=== PATIENT | female | born 1960 | race Caucasian/White ===

== ENCOUNTER → 2023-04-07 10:37 | Outpatient (REF) | payer OTHER, SELFPAY | LOC: MRI 3T 10:37 | PROVIDERS: ATTENDING PHYSICIAN Physical Medicine & Rehabilitation; FAMILY PHYSICIAN Nurse Practitioner Family | DX: M54.16 Radiculopathy, lumbar region (principal) | CPT/HCPCS: 72148 ==

== ENCOUNTER → 2023-05-23 10:51 | Outpatient (REF) | payer OTHER, SELFPAY | LOC: WDC 10:51 | PROVIDERS: ATTENDING PHYSICIAN Obstetrics & Gynecology; FAMILY PHYSICIAN Nurse Practitioner Family | DX: Z12.31 Encounter for screening mammogram for malignant neoplasm of breast (principal) | CPT/HCPCS: 77063; 77067 ==

== ENCOUNTER → 2023-06-21 09:59 | Outpatient (REF) | payer OTHER, SELFPAY | LOC: RAD 09:59 | PROVIDERS: ATTENDING PHYSICIAN Nurse Practitioner Family | DX: M81.0 Age-related osteoporosis without current pathological fracture (principal) | CPT/HCPCS: 77080 ==

== ENCOUNTER → 2024-02-29 12:20 | Outpatient (REF) | payer OTHER, SELFPAY | LOC: HWRAD 12:20 | PROVIDERS: ATTENDING PHYSICIAN Nurse Practitioner Family | DX: M53.3 Sacrococcygeal disorders, not elsewhere classified (principal) | CPT/HCPCS: 72220 ==

== ENCOUNTER → 2024-05-26 11:04 | Outpatient (REF) | payer OTHER, SELFPAY | LOC: WDC 11:04 | PROVIDERS: ATTENDING PHYSICIAN Obstetrics & Gynecology; FAMILY PHYSICIAN Nurse Practitioner Family | DX: Z12.31 Encounter for screening mammogram for malignant neoplasm of breast (principal) | CPT/HCPCS: 77063; 77067 ==

== ENCOUNTER → 2024-11-25 10:24 | Outpatient (REF) | payer OTHER, SELFPAY | LOC: HWRAD 10:24 | PROVIDERS: ATTENDING PHYSICIAN Obstetrics & Gynecology; FAMILY PHYSICIAN Nurse Practitioner Family | DX: R14.0 Abdominal distension (gaseous) (principal); R10.84 Generalized abdominal pain | CPT/HCPCS: 76830; 76856 ==

== ENCOUNTER 2024-11-26 10:39 | Emergency (ER) | payer OTHER, SELFPAY ==
[2024-11-26 10:40] VITALS: BP 135/82
[2024-11-26 11:17] VITALS: BP 114/77; BMI 19.9
[2024-11-26] MEDS: NSS 1000 IV (11:29)
[2024-11-26] MEDS: ANTIVERT 25 MG PO (11:29)
[2024-11-26 11:31] LABS: Hematocrit 38.6 % (37.0-47.0); Hemoglobin 12.9 g/dL (12.0-16.0); Mean Corp Hgb Conc. 33.4 g/dL (33.0-37.0); Mean Corpuscular Volume 88.7 fL (81.0-99.0); Nucleated Red Blood Cells % 0 %; Platelet Count 203 10^3/uL (130-400); Red Cell Dist. Width 11.8 % (11.5-14.5)
--- NOTE | 2024-11-26 11:36 | ED.GENMED ---
History of Present Illness
General
Chief Complaint: Dizziness
Time Seen by Provider: 11/26/24 10:59
Nursing documentation reviewed up to this point in time: agreed with
History of Present Illness
History of Present Illness:
64-year-old female presents to the ER for evaluation of room spinning discomfort that started on awakening this morning. Patient has been experiencing this intermittently over the last several weeks. She had traveled to [place] and went on a cruise
and upon return had seen her ear nose and throat doctor due to intermittent ear pain and dizziness. She was diagnosed with perforated right tympanic membrane and was given drops along with follow-up appointment. Patient also has prior history of
TMJ and was supposed to start therapy for that today. She also takes medication for allergic rhinitis. She denies any fevers or chills. No headache though she did feel some sinus pressure this morning. No change in vision. No focal weakness to
her extremities. She has been eating and drinking without difficulty although she reported some nausea this morning. She did take 12.5 mg of meclizine prior to arrival with some improvement. Symptoms are provoked by turning her head to the right
and with standing.
Past History
Past History
ED Past Medical History: Other (Allergic rhinitis) and Other (History of UTI)
ED Past Surgical History: Tonsilectomy
Social History
Tobacco: Non-smoker
Alcohol: None
Personal:
Living: with family
Employment: Employed
Family History
Family History: Cancer
Review of Systems
Review of Systems
Allergies reviewed?: Yes
Phy Exam
Physical Exam
Physical Exam:
Patient is awake, alert, appears in no acute distress, head is NCAT, PERRL, EOMI mucous membranes moist, left tympanic membrane appears within normal limits, right tympanic membrane with mild retraction and sick crust present on the posterior aspect
of the TM, no erythema, no dullness, no nystagmus provoked on head movement, conjunctiva pink, no carotid bruits, no JVD, heart regular rate and rhythm without murmurs or ectopy, lungs are clear to auscultation without wheezes rales or rhonchi, no
JVD, abdomen is soft and nontender on palpation, extremities without edema, GCS is 15, no dysdiadochokinesia, no ataxia, no pronator drift
NIH Stroke Score
Level of Consciousness: 0 - Alert
LOC questions: 0-Answers both correctly
LOC Commands: 0-Performs both correctly
Best Gaze: 0-Normal
Visual Zaragoza: 0=Normal, no visual loss
Facial palsy: 0=Normal, symmetrical
Motor - Right Arm: 0=No drift 10 seconds
Motor - Left Arm: 0=No drift 10 seconds
Motor - Right Le-No drift 5 seconds
Motor - Left Le-No drift 5 seconds
Limb Ataxia: 0-Absent
Sensation: 0-Normal
Best Language: 0-No aphasia
Dysarthria: 0-Normal
Extinction and Inattention: 0-No abnormality
Total Score:: 0
Course
Orders/Labs/Results
Orders:
Orders
11/26/24 10:44
ECG [Electrocardiogram (*1)] Urgent
Reason for Study: Vertigo / Dizzy
EKG- Treatment ONCE
11/26/24 11:17
0.9% Sodium Chloride 1000 ml [Nss] 1,000 ml IV BOLUS
Meclizine [Antivert] 25 mg PO NOW STA
11/26/24 11:20
Basic Metabolic Panel Urgent
Complete Blood Count/With Diff Urgent
Abnormal Lab Results
11/26/24
11:20
WBC 4.7 L 10^3/uL
(4.8-10.8)
Eosinophils % 9.2 H %
(0-6)
Chloride 110 H mmol/L
(98-107)
11/26/24 11:20
11/26/24 11:20
CBC within normal limits
Vital Signs
Initial and Last Documented VS:
Initial Vital Signs
Temp Pulse Resp BP Pulse Ox
98.2 F 89 18 135/82 97
11/26/24 10:40 11/26/24 10:40 11/26/24 10:40 11/26/24 10:40 11/26/24 10:40
Last Documented Vital Signs
Temp Pulse Resp BP Pulse Ox
98.2 F 64 18 129/79 98
11/26/24 10:40 11/26/24 12:00 11/26/24 10:40 11/26/24 12:00 11/26/24 12:15
MDM/Problems Addressed
Differential Diagnosis Includes:
Differential diagnosis to consider but not limited to electrolyte dyscrasia, eustachian tube dysfunction, allergic rhinitis, benign positional vertigo, vestibular neuritis along with other etiologies considered
*Radiology
Radiology exam reviewed: other (CT head considered but not ordered given overall benign exam and likely etiology of symptoms related to right tympanic membrane injury)
*Pulse Oximetry
SaO2: 95
Oxygen Mode of Delivery: Room air
Patient hypoxic: no
*EKG
Interpreted by ED Provider?: Yes (I independently viewed and interpreted twelve-lead EKG showing normal sinus rhythm, rate 77, normal axis, normal intervals, this is a normal tracing, no prior for comparison)
*Banquet Stewardess Interpretation
Rate: normal (I independently viewed and interpreted rhythm strip showing normal sinus rhythm, no ectopy)
*Critical Care Note
Total Time (30-74mins, 75-104mins- exclusive of procedures): Not Applicable
Update Note
Update Note:
Will treat symptomatically with 25 mg meclizine and IV fluids while awaiting screening labs. Patient and son present at bedside agree with plan of care
1225: Patient feeling better. Able to ambulate to the bathroom independently although she does report some mild feeling of dizziness. I discussed with her very reassuring labs. I discussed with her benefit of follow-up with her ENT and referral
for physical therapy. I discussed with her use of increased dose of meclizine for symptomatic relief. Patient expressed understanding of full discharge instructions and has no questions at the current time.
ED Attending Note
-
Portions of this chart may have been created with voice recognition software.� Occasional wrong word or��sound alike� substitutions may have occurred due to the inherent limitations of voice recognition software.
Discharge Plan
Departure
Patient Disposition: Home (Routine Discharge)
Date of Disposition: 11/26/24
Time of Disposition: 12:30
Patient with high blood pressure during this ER visit?: No
Discharge Problem:
Vertigo
Instructions: Vertigo (a Type of Dizziness) (DC)
Prescriptions:
No Action
flaxseed oil 1,000 MG capsule
1,000 mg PO DAILY
ibuprofen 600 MG tablet
600 mg PO Q6HPRN PRN (Reason: groin muscle pain)
fexofenadine-pseudoephedrine [Cori-D 12 Hour] 1 EACH tablet extended release 12 hr
1 ea PO DAILY
cholecalciferol (vitamin D3) 2,000 UNIT tablet
2,000 unit PO DAILY
biotin 1 MG capsule
1 mg PO DAILY
cefdinir [Omnicef] 300 MG capsule
300 mg PO BID Qty: 14 0RF
cefdinir 300 MG capsule
300 mg PO BID Qty: 14 0RF
phenazopyridine 200 MG tablet
200 mg PO TID Qty: 10 0RF
prednisone 20 mg tablet
20 mg PO DAILY 7 Days Qty: 7 0RF
meclizine 25 mg tablet
25 mg PO TID PRN (Reason: dizziness) Qty: 10 0RF
ondansetron 4 mg tablet,disintegrating
4 mg PO TIDPRN PRN (Reason: nausea/vomiting) Qty: 20 0RF
Referrals:
Meng Prasad CRNP [Family Provider, Family Practice]
Activity Restrictions/Additional Instructions:
Use meclizine as currently prescribed, 25 mg every 6 hours as needed for dizziness or nausea. Encourage fluids. Please follow up with your ENT specialist for further care and PT referral. Return to the ED for any concerns
Interventions
Interventions:
*Risk Screen - Suicide Last Done: 11/26/24 10:40
*General Assessment Last Done: 11/26/24 10:40
*ED- Fall Risk Assessment Last Done: 11/26/24 11:17
*ED COVID-19 Vaccine History Last Done: 11/26/24 11:17
*ED Influenza Vaccine History Last Done: 11/26/24 11:17
ED- Neurological Assessment Last Done: 11/26/24 11:17
ED Swallowing Screen Last Done: 11/26/24 11:19
Discharge Date and Time
Print Language: TRISTANIAN
[2024-11-26 11:51] LABS: Blood Urea Nitrogen 15 mg/dl (7-17); Calcium 9.6 mg/dl (8.4-10.2); Carbon Dioxide 27 mmol/L (22-30); Chloride 110 mmol/L (98-107); Estimated Creatinine Clearance 59 ml/min; Glucose 85 mg/dl (70-99); Potassium 4.2 mmol/L (3.5-5.1); Sodium 140 mmol/L (135-145); eGFR > 60.00
[2024-11-26 12:00] VITALS: BP 129/79
== END 2024-11-26 12:35 | disposition home or self-care (01) ==
LOC: EMR 10:39
PROVIDERS: EMERGENCY PHYSICIAN Emergency Medicine; FAMILY PHYSICIAN Nurse Practitioner Family
DX: R42 Dizziness and giddiness (principal)
CPT/HCPCS: 99284; 96360; 80048; 85025; 93005